=== PATIENT | male | born 1970 | race Caucasian/White ===

== ENCOUNTER 2022-01-13 16:47 | Emergency (ER) | payer MEDICAID ==
[~2022-01-13] VITALS: Ht 177.8 cm; Wt 90.9 kg
[2022-01-13 17:16] VITALS: BP 168/104
== END 2022-01-13 20:00 | disposition left against medical advice (07) ==
LOC: EMS 17:10
DX: L03.90 Cellulitis, unspecified (principal); Z53.21 Procedure and treatment not carried out due to patient leaving prior to being seen by health care provider